=== PATIENT | male | born 1970 | race Caucasian/White ===

== ENCOUNTER 2017-08-14 12:46 | Emergency (ER) | payer OTHER ==
[~2017-08-14] VITALS: Ht 198.1 cm; Wt 140.6 kg
[2017-08-14] MEDS ORDERED: METFORMIN HCL500 MG (13:04)
== END 2017-08-14 15:29 | disposition home or self-care (01) ==
LOC: ER 12:46
DX: N64.4 Mastodynia (principal)

== ENCOUNTER → 2022-04-19 | Emergency (ER) | payer OTHER ==
[~2022-04-19] VITALS: Ht 190.5 cm; Wt 154.2 kg
[~2022-04-19] MED LIST: METFORMIN HCL500 MG
== END | disposition home or self-care (01) ==
LOC: ER 18:06
DX: S99.811A Other specified injuries of right ankle, initial encounter (principal); W18.40XA Slipping, tripping and stumbling without falling, unspecified, initial encounter; Y93.9 Activity, unspecified; Y92.9 Unspecified place or not applicable